=== PATIENT | female | born 1955 | race Two or more races ===

== ENCOUNTER 2017-04-25 20:55 | Emergency (ER) | payer MEDICAID ==
[~2017-04-25] VITALS: Ht 160 cm; Wt 69.9 kg
[~2017-04-25 20:55] MED LIST: AMLODIPINE BESYL5 MG ORAL; NORCO 5-325 TA1 EACH ORAL; TRAMADOL HCL50 MG ORAL; ZOFRAN ODT8 MG ORAL; ZOFRAN4 MG ORAL
[2017-04-25] MEDS ORDERED: PREDNISONE20 MG ORAL (21:25)
[2017-04-25] MEDS ORDERED: AZITHROMYCIN250 MG ORAL (21:25)
[2017-04-25] MEDS ORDERED: ALBUTEROL SULF8.5 GM INH (21:25)
--- NOTE | 2017-04-25 21:25 | Emergency Room Report ---
History of Present Illness General Chief Complaint: General Complaint Source: Patient Present Illness HPI Is a 61-year-old female with no significant past medical history. She presents with chief complaint of cough and body aches. This has been occurring since February. She was in [facility] and was coughing. She was treated with amoxicillin for 10 days. Never got better. Coughing is nonproductive in nature. No nausea no vomiting. Have headache and body pain. Worse with inspiration. No wheezing. Nonproductive in nature. Diffuse pain is 7/10. No other complaint. Allergies: Coded Allergies: No Known Allergies (Unverified , 07/17/13) Patient History Past Medical History: see triage record, old chart reviewed Past Surgical History: other Pertinent Family History: none Social History: Denies: drug use Last Menstrual Period: NONE Now: No Immunizations: other Reviewed Nursing Documentation: PMH: Agreed, PSxH: Agreed Nursing Documentation-PMH Hx Hypertension: Yes Review of Systems Constitutional: Reports: weakness Eye: Denies: blurred vision, eye pain ENT: Denies: ear pain, nose congestion, throat swelling Respiratory: Reports: cough, shortness of breath Cardiovascular: Denies: chest pain, palpitations Gastrointestinal: Denies: abdominal pain, diarrhea, nausea, vomiting Musculoskeletal: Denies: back pain, joint pain Skin: Denies: rash Neurological: Reports: headache, Denies: numbness Endocrine: Denies: increased thirst, increased urine Hematologic/Lymphatic: Denies: easy bruising All Other Systems: negative except mentioned in HPI Physical Exam Vital Signs Date Time Temp Pulse Resp B/P Pulse Ox O2 Delivery O2 Flow Rate FiO2 04/25/17 21:09 97.9 95 18 151/88 96 Room Air vitals normal except for slightly elevated blood pressure Sp02 EP Interpretation: reviewed, normal General Appearance: well appearing, no apparent distress, alert Head: normocephalic, atraumatic Eyes: bilateral eye EOMI, bilateral eye PERRL ENT: hearing grossly normal, normal pharynx Neck: full range of motion, supple, no meningismus Respiratory: chest non-tender, lungs clear, normal breath sounds, other - Lungs clear but she has coughing with inspiration. Cardiovascular #1: regular rate, rhythm, no murmur Gastrointestinal: normal bowel sounds, non tender, no mass, no organomegaly, no bruit, non-distended Musculoskeletal: back normal, gait/station normal, normal range of motion Psychiatric: mood/affect normal Skin: warm/dry Medical Decision Making Diagnostic Impression: Primary Impression: Atypical pneumonia Additional Impression: Acute bronchospasm ER Course Patient with recurrent cough and bronchospasm. Most likely a viral illness but been ongoing for almost 2 months now. This may be secondary infection with atypical pneumonia. Will go ahead and switch antibiotic last. No evidence of ACS, PE, dissection to name a few. We'll discharge home. Chest X-Ray Diagnostic Results Chest X-Ray Diagnostic Results : Chest X-Ray Ordered: Yes # of Views/Limited/Complete: 1 View Indication: Shortness of Breath EP Interpretation: Yes Interpretation: no consolidation, no effusion, no pneumothorax, no acute cardiopulmonary disease Impression: No acute disease Interpreting ER Provider: Electronically interpreted by Chris Combs MD Last Vital Signs Date Time Temp Pulse Resp B/P Pulse Ox O2 Delivery O2 Flow Rate FiO2 04/25/17 21:09 97.9 95 18 151/88 96 Room Air Status: improved Disposition: HOME, SELF-CARE Condition: Stable Scripts Azithromycin* (ZITHROMAX*) 250 Mg Tablet 250 MG ORAL DAILY, #6 TAB 0 Refills Take two tablets by mouth today, then take one tablet by mouth daily for four days Prov: CHRIS COMBS M.D. 04/25/17 Prednisone* (PREDNISONE*) 20 Mg Tablet 60 MG ORAL DAILY, #12 TAB Prov: CHRIS CMOBS M.D. 04/25/17 Albuterol Sulfate* (ALBUTEROL SULFATE MDI*) 8.5 Gm Hfa.aer.ad 2 PUFF INH Q4H Y for cough/wheezing, #1 EA 0 Refills Prov: CHRIS COMBS M.D. 04/25/17 Additional Instructions: Followup with your DrTang in 7 days. Return for increasing pain, fever, chills, or any concern. CHRIS COMBS M.D. Apr 25, 2017 21:25
[2017-04-25] MEDS ORDERED: Albuterol ud Inhalation HHN ONE (21:30)
[2017-04-25] MEDS ORDERED: PredniSONE 20mg tab ORAL ONE (21:30)
[2017-04-25 21:51] VITALS: BP 142/82
[2017-04-25 21:52] VITALS: BP 151/88
--- NOTE | 2017-04-26 11:36 | Diagnostic Imaging Report ---
Indication: Dyspnea Comparison: 12/23/15 A single view chest radiograph was obtained. Findings: Cardiomediastinal appearance is within normal limits for age. Aorta is mildly ectatic. Pulmonary vascularity is appropriate. The diaphragmatic contour is smooth and costophrenic angles are sharp. No pleural effusions are identified. The bones are unremarkable. Impression: No acute findings Atherosclerotic vascular disease
== END 2017-04-25 21:52 | disposition home or self-care (01) ==
LOC: EMR 21:08
DX: J18.9 Pneumonia, unspecified organism (principal); J98.01 Acute bronchospasm; I10 Essential (primary) hypertension
CPT/HCPCS: 71010; 94640; 94664; 99284

== ENCOUNTER 2018-08-09 17:52 | Inpatient (IN) | payer MEDICAID ==
[~2018-08-09] VITALS: Ht 160 cm; Wt 68.0 kg
[~2018-08-09 17:52] MED LIST changes: +ALBUTEROL SULF8.5 GM INH; +AZITHROMYCIN250 MG ORAL; +PREDNISONE20 MG ORAL
[2018-08-09] MEDS ORDERED: NORVASC10 MG ORAL (18:03)
[2018-08-09] MEDS ORDERED: PRILOSEC OTC20 MG ORAL (18:03)
[2018-08-09] MEDS ORDERED: HYDROCHLOROTH12.5 M2 ORAL (18:03)
[2018-08-09 18:04] VITALS: BP 156/86
[2018-08-09] MEDS ORDERED: Acetaminophen 500mg (ES) tab ORAL ONE (18:45)
[2018-08-09] MEDS ORDERED: Isovue-300 100ml vial INJ PRN (19:00)
[2018-08-09 19:08] LABS: APPEARANCE,URINE CLEAR; BILIRUBIN, URINE NEGATIVE (NEGATIVE); COLOR,URINE PALE YELLOW; GLUCOSE, URINE (UA) NEGATIVE (NEGATIVE); KETONES,URINE NEGATIVE (NEGATIVE); LEUKOCYTE ESTERASE ,URINE NEGATIVE (NEGATIVE); NITRITE,URINE NEGATIVE (NEGATIVE); PH,URINE 7 (4.5-8.0); PROTEIN,URINE NEGATIVE (NEGATIVE); UROBILINOGEN,URINE NORMAL MG/DL (0.0-1.0)
[2018-08-09 19:12] LABS: BASOPHILS % (AUTO) 1.3 % (0.0-2.0); EOSINOPHILS % (AUTO) 0.8 % (0.0-3.0); HEMATOCRIT 45.3 % (37.0-47.0); HEMOGLOBIN 15.8 G/DL (12.0-16.0); LYMPHOCYTES % (AUTO) 32.5 % (20.0-45.0); MEAN CORPUSCULAR VOLUME 92 FL (80-99); MONOCYTES % (AUTO) 7.1 % (1.0-10.0); NEUTROPHILS % (AUTO) 58.3 % (45.0-75.0); PLATELET COUNT 264 K/UL (150-450); RED BLOOD COUNT 4.94 M/UL (4.20-5.40); WHITE BLOOD COUNT 11.4 K/UL (4.8-10.8)
[2018-08-09 19:18] LABS: ANION GAP 9 mmol/L (5-15); BLOOD UREA NITROGEN 12 mg/dL (7-18); CALCIUM 9.7 MG/DL (8.5-10.1); CARBON DIOXIDE 31 MMOL/L (21-32); CHLORIDE 100 MMOL/L (98-107); CREATININE 0.7 MG/DL (0.55-1.30); POTASSIUM 3.5 MMOL/L (3.5-5.1); SODIUM 140 MMOL/L (136-145)
[2018-08-09 19:23] LABS: ALANINE AMINOTRANSFERASE 69 U/L (12-78); ALBUMIN 3.9 G/DL (3.4-5.0); ALBUMIN/GLOBULIN RATIO 0.7 (1.0-2.7); ALKALINE PHOSPHATASE 90 U/L (46-116); ASPARTATE AMINO TRANSFERASE 31 U/L (15-37); BILIRUBIN,TOTAL 0.3 MG/DL (0.2-1.0)
--- NOTE | 2018-08-09 19:38 | Emergency Room Report ---
History of Present Illness General Chief Complaint: Abdominal Pain Source: Patient (Zane Cooper) Present Illness HPI 63-year-old female patient presents ER complaining of right upper quadrant pain 1 day. Reports pain symptoms began yesterday. Reports pain is reproducible and worse with deep inspiration. reports pain radiating down to RLQ. Denies injury or trauma. Denies shortness of breath. Reports history of surgery to remove her gallbladder while ago, "does not remember when". Denies taking blood thinners. Reports history of high blood pressure and GERD. Denies vomiting. Denies diarrhea. Denies constipation. Denies fever, chest pain, shortness of breath. denies calf Pain. Denies smoking. Denies drug use. Denies on periods of immobilization. Denies history of cancer. Reports takes aspirin, denies taking other blood thinner medication. (Zane Cooper) Allergies: Coded Allergies: No Known Allergies (Unverified , 07/17/13) Patient History Past Medical History: see triage record Reviewed Nursing Documentation: PMH: Agreed; PSxH: Agreed (Zane Cooper) Nursing Documentation-PMH Past Medical History: No History, Except For Hx Hypertension: Yes (Zane Cooper) Review of Systems All Other Systems: negative except mentioned in HPI (Zane Cooper) Physical Exam Vital Signs Date Time Temp Pulse Resp B/P (MAP) Pulse Ox O2 Delivery O2 Flow Rate FiO2 08/09/18 17:56 97.9 91 18 156/86 98 Room Air 97.9 Sp02 EP Interpretation: reviewed, normal General Appearance: well appearing, no apparent distress, alert, GCS 15, non- toxic Head: normocephalic, atraumatic Eyes: bilateral eye normal inspection, bilateral eye PERRL ENT: hearing grossly normal, normal pharynx, no angioedema, normal voice, uvula midline, moist mucus membranes Neck: full range of motion Respiratory: lungs clear, normal breath sounds, no rhonchi, no respiratory distress, no accessory muscle use, no wheezing, speaking full sentences Cardiovascular #1: regular rate, rhythm, no edema Gastrointestinal: soft, no mass, non-distended, no guarding, no rebound, tenderness - RUQ Musculoskeletal: back normal, digits/nails normal, gait/station normal, normal range of motion, non-tender, no calf tenderness, Shandra's Sign negative Neurologic: alert, oriented x3, responsive, motor strength/tone normal, sensory intact Psychiatric: mood/affect normal Skin: no rash Lymphatic: no adenopathy (Zane Cooper) Medical Decision Making PA Attestation Dr. Rice is my supervising Physician whom patient management has been discussed with. (Zane Cooper) Diagnostic Impression: Primary Impression: Appendicitis ER Course Pt. presents to the ED c/o abdominal pain and vomiting. Ddx considered but are not limited to UTI, pancreatitis, appendicitis, diverticulitis, constipation, abscess, [place], PNA. Begin abdominal pain workup. Provided patient with pain medication. Vital signs: are WNL, pt. is afebrile ORDERS: CBC, CMP, Lipase, UA, CT abdomen pelvis, and pain medication. ER COURSE: PE shows patient with RLQ and RUQ pain. CBC mild elevation of WBC CMP unremarkable Lipase WNL UA negative Coags WNL Discuss results with patient CT chest abdomen and pelvis with contrast shows appendicitis, will order abx and admit patient for appendicitis. CT chest negative Discuss results with the patient. Provided patient with copy of results. Instructed patient to followup with PCP and discuss results of report with patient, discuss need for further treatment and referral. Patient reports has been NPO since 11am. Declined further pain medication at this time. I discussed patient with Dr. Rice, agrees with assessment and treatment plan. Consult with Dr. Atwood for surgical consult. Patient to be admitted to med-surg. - Please note that this Emergency Department Report was dictated using [employer] unloader technology software, occasionally this can lead to erroneous entry secondary to interpretation by the dictation equipment. Labs Test 08/09/18 18:50 White Blood Count 11.4 K/UL (4.8-10.8) Red Blood Count 4.94 M/UL (4.20-5.40) Hemoglobin 15.8 G/DL (12.0-16.0) Hematocrit 45.3 % (37.0-47.0) Mean Corpuscular Volume 92 FL (80-99) Mean Corpuscular Hemoglobin 32.0 PG (27.0-31.0) Mean Corpuscular Hemoglobin Concent 34.8 G/DL (32.0-36.0) Red Cell Distribution Width 11.0 % (11.6-14.8) Platelet Count 264 K/UL (150-450) Mean Platelet Volume 8.0 FL (6.5-10.1) Neutrophils (%) (Auto) 58.3 % (45.0-75.0) Lymphocytes (%) (Auto) 32.5 % (20.0-45.0) Monocytes (%) (Auto) 7.1 % (1.0-10.0) Eosinophils (%) (Auto) 0.8 % (0.0-3.0) Basophils (%) (Auto) 1.3 % (0.0-2.0) Prothrombin Time 11.0 SEC (9.30-11.50) Prothromb Time International Ratio 1.0 (0.9-1.1) Activated Partial Thromboplast Time 28 SEC (23-33) Urine Color Pale yellow Urine Appearance Clear Urine pH 7 (4.5-8.0) Urine Specific [place] 1.010 (1.005-1.035) Urine Protein Negative (NEGATIVE) Urine Glucose (UA) Negative (NEGATIVE) Urine Ketones Negative (NEGATIVE) Urine Blood Negative (NEGATIVE) Urine Nitrite Negative (NEGATIVE) Urine Bilirubin Negative (NEGATIVE) Urine Urobilinogen Normal MG/DL (0.0-1.0) Urine Leukocyte Esterase Negative (NEGATIVE) Sodium Level 140 MMOL/L (136-145) Potassium Level 3.5 MMOL/L (3.5-5.1) Chloride Level 100 MMOL/L (98-107) Carbon Dioxide Level 31 MMOL/L (21-32) Anion Gap 9 mmol/L (5-15) Blood Urea Nitrogen 12 mg/dL (7-18) Creatinine 0.7 MG/DL (0.55-1.30) Estimat Glomerular Filtration Rate > 60 mL/min (>60) Glucose Level 109 MG/DL (74-106) Calcium Level 9.7 MG/DL (8.5-10.1) Total Bilirubin 0.3 MG/DL (0.2-1.0) Aspartate Amino Transf (AST/SGOT) 31 U/L (15-37) Alanine Aminotransferase (ALT/SGPT) 69 U/L (12-78) Alkaline Phosphatase 90 U/L (46-116) Total Protein 9.4 G/DL (6.4-8.2) Albumin 3.9 G/DL (3.4-5.0) Globulin 5.5 g/dL Albumin/Globulin Ratio 0.7 (1.0-2.7) Lipase 118 U/L (73-393) (Zane Cooper) ER Course The patient was discussed me by physician digital sales assistant. Patient was noted to have the right lower quadrant abdominal pain. CT the abdomen pelvis showed evidence of acute appendicitis. The patient was discussed with Dr. Atwood for surgical consult. Dr.De Sandoval was contacted for inpatient management. Labs Test 08/09/18 18:50 White Blood Count 11.4 K/UL (4.8-10.8) Red Blood Count 4.94 M/UL (4.20-5.40) Hemoglobin 15.8 G/DL (12.0-16.0) Hematocrit 45.3 % (37.0-47.0) Mean Corpuscular Volume 92 FL (80-99) Mean Corpuscular Hemoglobin 32.0 PG (27.0-31.0) Mean Corpuscular Hemoglobin Concent 34.8 G/DL (32.0-36.0) Red Cell Distribution Width 11.0 % (11.6-14.8) Platelet Count 264 K/UL (150-450) Mean Platelet Volume 8.0 FL (6.5-10.1) Neutrophils (%) (Auto) 58.3 % (45.0-75.0) Lymphocytes (%) (Auto) 32.5 % (20.0-45.0) Monocytes (%) (Auto) 7.1 % (1.0-10.0) Eosinophils (%) (Auto) 0.8 % (0.0-3.0) Basophils (%) (Auto) 1.3 % (0.0-2.0) Prothrombin Time 11.0 SEC (9.30-11.50) Prothromb Time International Ratio 1.0 (0.9-1.1) Activated Partial Thromboplast Time 28 SEC (23-33) Urine Color Pale yellow Urine Appearance Clear Urine pH 7 (4.5-8.0) Urine Specific [place] 1.010 (1.005-1.035) Urine Protein Negative (NEGATIVE) Urine Glucose (UA) Negative (NEGATIVE) Urine Ketones Negative (NEGATIVE) Urine Blood Negative (NEGATIVE) Urine Nitrite Negative (NEGATIVE) Urine Bilirubin Negative (NEGATIVE) Urine Urobilinogen Normal MG/DL (0.0-1.0) Urine Leukocyte Esterase Negative (NEGATIVE) Sodium Level 140 MMOL/L (136-145) Potassium Level 3.5 MMOL/L (3.5-5.1) Chloride Level 100 MMOL/L (98-107) Carbon Dioxide Level 31 MMOL/L (21-32) Anion Gap 9 mmol/L (5-15) Blood Urea Nitrogen 12 mg/dL (7-18) Creatinine 0.7 MG/DL (0.55-1.30) Estimat Glomerular Filtration Rate > 60 mL/min (>60) Glucose Level 109 MG/DL (74-106) Calcium Level 9.7 MG/DL (8.5-10.1) Total Bilirubin 0.3 MG/DL (0.2-1.0) Aspartate Amino Transf (AST/SGOT) 31 U/L (15-37) Alanine Aminotransferase (ALT/SGPT) 69 U/L (12-78) Alkaline Phosphatase 90 U/L (46-116) Total Protein 9.4 G/DL (6.4-8.2) Albumin 3.9 G/DL (3.4-5.0) Globulin 5.5 g/dL Albumin/Globulin Ratio 0.7 (1.0-2.7) Lipase 118 U/L (73-393) (Messi Rice MD) CT/MRI/US Diagnostic Results CT/MRI/US Diagnostic Results #1: Imaging Test Ordered: CT abdomen pelvis Impression acute appendicitis CT/MRI/US Diagnostic Results #2: Imaging Test Ordered: CT chest Impression negative (Zane Cooper) Last Vital Signs Date Time Temp Pulse Resp B/P (MAP) Pulse Ox O2 Delivery O2 Flow Rate FiO2 08/09/18 18:52 97.9 08/09/18 18:04 91 18 156/86 98 Room Air (Zane Cooper) Status: unchanged (Messi Rice MD) Disposition: ADMITTED INPATIENT Condition: Serious Zane Cooper Aug 09, 2018 19:38 Messi Rice MD Aug 09, 2018 23:49
--- NOTE | 2018-08-09 20:35 | Diagnostic Imaging Report ---
EXAM: CT Chest With Intravenous Contrast CLINICAL HISTORY: PAIN TECHNIQUE: Axial computed tomography images of the chest with intravenous contrast. CTDI is 0.15, 17.31, 14.66 mGy and DLP is 14.38 mGy-cm. One or more of the following dose reduction techniques were used: automated exposure control, adjustment of the mA and/or kV according to patient size, use of iterative reconstruction technique. COMPARISON: No relevant prior studies available. FINDINGS: Lungs: Unremarkable. No mass. No consolidation. Pleural space: Unremarkable. No pneumothorax. No significant effusion. Heart: Unremarkable. No cardiomegaly. No significant pericardial effusion. Bones/joints: Probable osseous hemangioma in the T9 vertebral body. Mild degenerative changes of the spine. No acute osseous abnormality. No dislocation. Soft tissues: Unremarkable. Vasculature: Atherosclerosis of the thoracic aorta. No thoracic aortic aneurysm or dissection. Lymph nodes: Unremarkable. IMPRESSION: No acute findings. EXAM: CT Abdomen and Pelvis With Intravenous Contrast CLINICAL HISTORY: PAIN TECHNIQUE: Axial computed tomography images of the abdomen and pelvis with intravenous contrast. CTDI is 0.15, 17.31, 14.66 mGy and DLP is 14.38 mGy-cm. One or more of the following dose reduction techniques were used: automated exposure control, adjustment of the mA and/or kV according to patient size, use of iterative reconstruction technique. COMPARISON: No relevant prior studies available. FINDINGS: Lung bases: Unremarkable. No mass. No consolidation. ABDOMEN: Liver: Liver is enlarged. Subcentimeter focus of hypoattenuation in the inferior right hepatic lobe is too small to characterize. Gallbladder and bile ducts: Gallbladder surgically absent. Pancreas: Unremarkable. Spleen: Unremarkable. Adrenals: Unremarkable. Kidneys and ureters: Unremarkable. No solid mass. No hydronephrosis. Stomach and bowel: Colonic diverticulosis without focal inflammatory change. Bowel is nondilated. PELVIS: Appendix: Thickened appendix measuring 1 cm with surrounding inflammatory change. Bladder: Unremarkable. Reproductive: Unremarkable as visualized. ABDOMEN and PELVIS: Intraperitoneal space: No free air. No loculated fluid collection. Bones/joints: No acute osseous abnormality. Soft tissues: Unremarkable. Vasculature: Unremarkable. No abdominal aortic aneurysm. Lymph nodes: Unremarkable. IMPRESSION: Acute uncomplicated appendicitis. [employer] 08/09/18 20:38 Call Doctor Regarding Appendicitis, called Allison FLEMING on 08/09 20:38 (-07:00)
[2018-08-09] MEDS ORDERED: Ampicillin/Sulbactam Sod 3 GM in NS 110 ML IVPB ONE (20:45)
--- NOTE | 2018-08-09 21:22 | Consultation ---
History of Present Illness General Date patient seen: Aug 09, 2018 Chief Complaint: Abdominal Pain Present Illness HPI 63 year old female with pmhx of HTN presented to ED with complaints of Right sided abdominal pain for 1 day. States pain began last night and has persisted since. Pain 8/10 cramping right abdominal pain in right lower and right middle quadrant. no n/v/f/c. no radiation. in ED noted to have leukocytosis and CT consistent with acute appy. surgery called to evaluate. patient seen, chart reviewed, patient examined. PSHx: lap ruben and prior c section Allergies: Coded Allergies: No Known Allergies (Unverified , 07/17/13) Medication History Scheduled Amlodipine Besylate (Norvasc), 10 MG ORAL DAILY, (Reported) Amlodipine Besylate* (Amlodipine Besylate*), 5 MG ORAL DAILY, (Reported) Azithromycin* (Zithromax*), 250 MG ORAL DAILY Hydrochlorothiazide* (Hydrochlorothiazide*), 12.5 MG ORAL DAILY, (Reported) Omeprazole Magnesium (Prilosec Otc), 20 MG ORAL DAILY, (Reported) Ondansetron (Zofran), 4 MG ORAL Q8H Ondansetron Odt* (Zofran Odt*), 8 MG ORAL Q6H Prednisone* (Prednisone*), 60 MG ORAL DAILY Scheduled PRN Albuterol Sulfate* (Albuterol Sulfate Mdi*), 2 PUFF INH Q4H PRN for cough/ wheezing Hydrocodone Bit/Acetaminophen 5-325* ([place] 5-325*), 1 TAB ORAL Q6H PRN for For Pain Tramadol Hcl* (Ultram*), 50 MG ORAL Q6H PRN for For Pain Patient History History Provided By: Patient, Medical Record, PMD Healthcare decision maker Resuscitation status Advanced Directive on File Past Medical/Surgical History Past Medical/Surgical History: (1) Sciatica (2) back pain (3) Appendicitis Review of Systems Constitutional: Denies: no symptoms, see HPI, chills, sweats, fever, malaise, weakness, other Eye: Denies: no symptoms, see HPI, eye pain, blurred vision, tearing, double vision, nose pain, nose congestion, acuity changes, discharge, other ENT: Denies: no symptoms, see HPI, ear pain, ear discharge, nose pain, nose congestion, throat pain, throat swelling, mouth pain, hearing loss, nasal discharge, other Respiratory: Denies: no symptoms, see HPI, cough, orthopnea, shortness of breath, stridor, wheezing, LUU, sputum, other Cardiovascular: Denies: no symptoms, see HPI, chest pain, edema, palpitations, syncope, PND, other Gastrointestinal: Reports: abdominal pain Genitourinary: Denies: no symptoms, see HPI, discharge, dysuria, frequency, hematuria, pain, retention, incontinence, urgency, vag bleed/dc, other Musculoskeletal: Denies: no symptoms, see HPI, back pain, gout, joint pain, joint swelling, muscle pain, muscle stiffness, other Skin: Denies: no symptoms, see HPI, rash, change in color, change in hair/nails , dryness, lesions, other Psychiatric: Denies: no symptoms, see HPI, prior hx, anxiety, depressed feelings, emotional problems, SI, HI, hallucinations, other Neurological: Denies: no symptoms, see HPI, headache, numbness, paresthesia, seizure, tingling, tremors, focal weakness, syncope, dizziness, other Endocrine: Denies: no symptoms, see HPI, excessive sweating, flushing, intolerance to temperature, increased thirst, increased urine, unexplained weight loss, other Hematologic/Lymphatic: Denies: no symptoms, see HPI, anemia, blood clots, easy bleeding, easy bruising, swollen glands, diathesis, other All Other Systems: negative except mentioned in HPI Physical Exam General Appearance: no apparent distress, alert Lines, tubes and drains: peripheral HEENT: atraumatic, mucous membranes moist Neck: normal inspection Respiratory/Chest: normal breath sounds, no respiratory distress, no accessory muscle use Cardiovascular/Chest: normal rate, regular rhythm Abdomen: normal bowel sounds, soft, no organomegaly, no mass, guarding, rebound , tender Extremities: normal inspection, no calf tenderness Skin Exam: warm/dry Neurologic: alert, oriented x 3 Last 24 Hour Vital Signs Date Time Temp Pulse Resp B/P (MAP) Pulse Ox O2 Delivery O2 Flow Rate FiO2 08/09/18 18:52 97.9 08/09/18 18:04 97.9 91 18 156/86 98 Room Air 97.9 08/09/18 17:56 97.9 91 18 156/86 98 Room Air 97.9 Laboratory Tests Test 08/09/18 18:50 White Blood Count 11.4 K/UL (4.8-10.8) H Red Blood Count 4.94 M/UL (4.20-5.40) Hemoglobin 15.8 G/DL (12.0-16.0) Hematocrit 45.3 % (37.0-47.0) Mean Corpuscular Volume 92 FL (80-99) Mean Corpuscular Hemoglobin 32.0 PG (27.0-31.0) H Mean Corpuscular Hemoglobin Concent 34.8 G/DL (32.0-36.0) Red Cell Distribution Width 11.0 % (11.6-14.8) L Platelet Count 264 K/UL (150-450) Mean Platelet Volume 8.0 FL (6.5-10.1) Neutrophils (%) (Auto) 58.3 % (45.0-75.0) Lymphocytes (%) (Auto) 32.5 % (20.0-45.0) Monocytes (%) (Auto) 7.1 % (1.0-10.0) Eosinophils (%) (Auto) 0.8 % (0.0-3.0) Basophils (%) (Auto) 1.3 % (0.0-2.0) Prothrombin Time 11.0 SEC (9.30-11.50) Prothromb Time International Ratio 1.0 (0.9-1.1) Activated Partial Thromboplast Time 28 SEC (23-33) Urine Color Pale yellow Urine Appearance Clear Urine pH 7 (4.5-8.0) Urine Specific [place] 1.010 (1.005-1.035) Urine Protein Negative (NEGATIVE) Urine Glucose (UA) Negative (NEGATIVE) Urine Ketones Negative (NEGATIVE) Urine Blood Negative (NEGATIVE) Urine Nitrite Negative (NEGATIVE) Urine Bilirubin Negative (NEGATIVE) Urine Urobilinogen Normal MG/DL (0.0-1.0) Urine Leukocyte Esterase Negative (NEGATIVE) Sodium Level 140 MMOL/L (136-145) Potassium Level 3.5 MMOL/L (3.5-5.1) Chloride Level 100 MMOL/L (98-107) Carbon Dioxide Level 31 MMOL/L (21-32) Anion Gap 9 mmol/L (5-15) Blood Urea Nitrogen 12 mg/dL (7-18) Creatinine 0.7 MG/DL (0.55-1.30) Estimat Glomerular Filtration Rate > 60 mL/min (>60) Glucose Level 109 MG/DL (74-106) H Calcium Level 9.7 MG/DL (8.5-10.1) Total Bilirubin 0.3 MG/DL (0.2-1.0) Aspartate Amino Transf (AST/SGOT) 31 U/L (15-37) Alanine Aminotransferase (ALT/SGPT) 69 U/L (12-78) Alkaline Phosphatase 90 U/L (46-116) Total Protein 9.4 G/DL (6.4-8.2) H Albumin 3.9 G/DL (3.4-5.0) Globulin 5.5 g/dL Albumin/Globulin Ratio 0.7 (1.0-2.7) L Lipase 118 U/L (73-393) Height (Feet): 5 Height (Inches): 3.00 Weight (Pounds): 150 Medications Current Medications Medications (Trade) Dose Ordered Sig/Raúl Route PRN Reason Start Time Stop Time Status Last Admin Dose Admin Iopamidol (Isovue-300 100ml) 100 ml NOW PRN INJ Radiology Procedure 08/09/18 19:00 Assessment/Plan Problem List: (1) Appendicitis Assessment & Plan: 63F with acute appendicitis. afebrile,HD stable, leukocytosis, exam with Right sided tenderness/rebound/guarding, CT consistent with acute appy NPO IV fluids IV abx Consent To OR for lap vs open appy thank you ICD Codes: K37 - Unspecified appendicitis SNOMED: [id number] Qualifiers: Status: stable Adelfo Atwood Aug 09, 2018 21:22
--- NOTE | 2018-08-09 21:23 | Pre-Procedure Note/Attestation ---
Pre-Procedure Note/Attestation Complete Prior to Procedure Planned Procedure: not applicable Procedure Narrative: laparoscopic possible open appendectomy Indications for Procedure Pre-Operative Diagnosis: acute appendicitis Attestation I attest that I discussed the nature of the procedure; its benefits; risks and complications; and alternatives (and the risks and benefits of such alternatives ), prior to the procedure, with the patient (or the patient's legal pharmaceutical specialty representative). I attest that, if there was a reasonable possibility of needing a blood transfusion, the patient (or the patient's legal pharmaceutical specialty representative) was given the [facility] standardized written summary, pursuant to the [place] Blood Safety Act ([place] Health and Safety Code # 1645, as amended). I attest that I re-evaluated the patient just prior to the surgery and that there has been no change in the patient's H&P, except as documented below: Adelfo Atwood Aug 09, 2018 21:23
[2018-08-09] MEDS ORDERED: Bupivacaine w/Epi 0.25% 30ml Vial INJ ONE (22:12)
[2018-08-09] MEDS ORDERED: Bacitracin 50000 Units Vial ONE (22:12)
[2018-08-09] MEDS ORDERED: NeoSporin Gu Irrig 1ml Amp IRRIG ONE (22:12)
[2018-08-09] MEDS ORDERED: fentaNYL 100 mcg/2 mL IV ONE (22:18)
[2018-08-09] MEDS ORDERED: Zemuron 50mg/5ml Inj IV ONE (22:22)
--- NOTE | 2018-08-09 22:27 | Anethesia Preoperative Eval ---
Anesthesia Pre-op PMH/ROS General Date of Evaluation: Aug 09, 2018 Time of Evaluation: 22:30 Anesthesiologist: srikanth ASA Score: ASA 2 Mallampati Score Class I : Soft palate, uvula, fauces, pillars visible Class II: Soft palate, uvula, fauces visible Class III: Soft palate, base of uvula visible Class IV: Only hard plate visible Mallampati Classification: Class II Surgeon: ramana Diagnosis: appendicitis Surgical Procedure: Lap Appendectomy Anesthesia History: none Family History: no anesthesia problems Allergies: Coded Allergies: No Known Allergies (Unverified , 07/17/13) Medications: see eMAR Patient NPO?: Yes Past Medical History Cardiovascular: Reports: HTN; Denies: CAD, [place], valve dz, arrhythmia, other Pulmonary: Reports: asthma; Denies: COPD, CECELIA, other Gastrointestinal/Genitourinary: Denies: GERD, CRI, ESRD, other Neurologic/Psychiatric: Denies: dementia, CVA, depression/anxiety, TIA, other Endocrine: Denies: DM, hypothyroidism, steroids, other HEENT: Denies: cataract (L), cataract (R), glaucoma, [place] (L), [place] (R), other Hematology/Immune: Denies: anemia, DVT, bleeding disorder, other PMH Narrative: sciatica; chronic pain PSxH Narrative: unknown Anesthesia Pre-op Phys. Exam Physician Exam Last Vital Signs Date Time Temp Pulse Resp B/P (MAP) Pulse Ox O2 Delivery O2 Flow Rate FiO2 08/09/18 18:52 97.9 08/09/18 18:04 91 18 156/86 98 Room Air Constitutional: NAD Neurologic: CN 2-12 intact Cardiovascular: RRR Respiratory: CTA Gastrointestinal: S/NT/ND Airway Exam Mallampati Classification 2 Mallampati Score: Class III MO: full ROM: full Dentures: upper, lower Anesthesia Pre-op A/P Labs Hematology Test 08/09/18 18:50 White Blood Count 11.4 K/UL (4.8-10.8) H Red Blood Count 4.94 M/UL (4.20-5.40) Hemoglobin 15.8 G/DL (12.0-16.0) Hematocrit 45.3 % (37.0-47.0) Mean Corpuscular Volume 92 FL (80-99) Mean Corpuscular Hemoglobin 32.0 PG (27.0-31.0) H Mean Corpuscular Hemoglobin Concent 34.8 G/DL (32.0-36.0) Red Cell Distribution Width 11.0 % (11.6-14.8) L Platelet Count 264 K/UL (150-450) Mean Platelet Volume 8.0 FL (6.5-10.1) Neutrophils (%) (Auto) 58.3 % (45.0-75.0) Lymphocytes (%) (Auto) 32.5 % (20.0-45.0) Monocytes (%) (Auto) 7.1 % (1.0-10.0) Eosinophils (%) (Auto) 0.8 % (0.0-3.0) Basophils (%) (Auto) 1.3 % (0.0-2.0) Coagulation Test 08/09/18 18:50 Prothrombin Time 11.0 SEC (9.30-11.50) Prothromb Time International Ratio 1.0 (0.9-1.1) Activated Partial Thromboplast Time 28 SEC (23-33) Chemistry Test 08/09/18 18:50 Sodium Level 140 MMOL/L (136-145) Potassium Level 3.5 MMOL/L (3.5-5.1) Chloride Level 100 MMOL/L (98-107) Carbon Dioxide Level 31 MMOL/L (21-32) Anion Gap 9 mmol/L (5-15) Blood Urea Nitrogen 12 mg/dL (7-18) Creatinine 0.7 MG/DL (0.55-1.30) Estimat Glomerular Filtration Rate > 60 mL/min (>60) Glucose Level 109 MG/DL (74-106) H Calcium Level 9.7 MG/DL (8.5-10.1) Total Bilirubin 0.3 MG/DL (0.2-1.0) Aspartate Amino Transf (AST/SGOT) 31 U/L (15-37) Alanine Aminotransferase (ALT/SGPT) 69 U/L (12-78) Alkaline Phosphatase 90 U/L (46-116) Total Protein 9.4 G/DL (6.4-8.2) H Albumin 3.9 G/DL (3.4-5.0) Globulin 5.5 g/dL Albumin/Globulin Ratio 0.7 (1.0-2.7) L Lipase 118 U/L (73-393) Studies Pre-op Studies: EKG - SR Risk Assessment & Plan Plan: general Status Change Before Surgery: No Pre-Antibiotics Drug: declined Kathe Etienne CRNA Aug 09, 2018 22:26
[2018-08-09] MEDS ORDERED: Glycopyrrolate 0.2mg/ml 1ml Vial ONE ×2 (22:30→23:36)
[2018-08-09] MEDS ORDERED: fentaNYL 100 mcg/2 mL IV PRN (22:30)
[2018-08-09] MEDS ORDERED: LR 1000ml ONE (22:30)
[2018-08-09] MEDS ORDERED: Propofol 200mg/20ml IV ONE (22:52)
[2018-08-09] MEDS ORDERED: Metoclopramide 10mg/2ml Inj ONE (22:52)
[2018-08-09] MEDS ORDERED: Lidocaine 1% MPF 10mg/ml 5ml ONE (22:52)
[2018-08-09] MEDS ORDERED: Ketorolac 30mg Inj ONE (23:01)
[2018-08-09] MEDS ORDERED: Neostigmine 1mg/ml 10ml Inj ONE (23:36)
[2018-08-09 23:45] VITALS: BP 135/77
[2018-08-09] MEDS ORDERED: Albuterol 90mcg Inhaler 8gm INH ONE (23:45)
[2018-08-09 23:50] VITALS: BP 134/79
[2018-08-09 23:55] VITALS: BP 126/77
--- NOTE | 2018-08-09 23:58 | Immediate Post-Op Evaluation ---
Immediate Post-Op Evalulation Immediate Post-Op Evalulation Procedure: lap appendectomy Date of Evaluation: Aug 09, 2018 Time of Evaluation: 23:50 IV Fluids: 500 Blood Pressure Systolic: 134 Blood Pressure Diastolic: 77 Pulse Rate: 68 Respiratory Rate: 14 O2 Sat by Pulse Oximetry: 99 Temperature (Fahrenheit): 97.5 Nausea: No Vomiting: No Complications none Patient Status: awake, reacts, patent Hydration Status: adequate Drug: declined Kathe Etienne CRNA Aug 09, 2018 23:58
[2018-08-10] VITALS (10 sets, daily range): BP systolic 106–126; BP diastolic 64–73
[2018-08-10] MEDS ORDERED: Enoxaparin 40mg Inj SUBQ SCH
--- NOTE | 2018-08-10 00:12 | Brief Operative Note ---
Immediate Post Operative Note Operative Note Pre-op Diagnosis: acute appendicitis Procedure: lap appy Post-op Diagnosis: same as pre-op Surgeon: moni Anesthesiologist: Kathe Mendosa Anesthesia: general Specimen: yes Complications: none Condition: stable Fluids: see records Estimated Blood Loss: minimal Drains: none Implant(s) used?: No Adelfo Atwood Aug 10, 2018 00:12
[2018-08-10] MEDS ORDERED: Morphine Sulfate 2mg/ml Inj IVP PRN ×2 (00:15)
[2018-08-10] MEDS ORDERED: HYDROcodone/Acetamin 10/325 tab ORAL PRN (00:15)
[2018-08-10] MEDS ORDERED: Norco 5mg/325mg tab ORAL PRN (00:15)
[2018-08-10] MEDS ORDERED: Morphine Sulfate 4mg/ml Inj (IV/IM USE ONLY) IVP PRN (00:15)
[2018-08-10] MEDS ORDERED: Milk of Magnesia 30ml Ud ORAL PRN (00:15)
[2018-08-10] MEDS ORDERED: Sennosides 8.6mg ORAL PRN (00:15)
--- NOTE | 2018-08-10 03:15 | Operative Note - Dictated ---
DATE OF OPERATION: 08/09/2018 PREOPERATIVE DIAGNOSIS: Acute appendicitis. POSTOPERATIVE DIAGNOSIS: Acute uncomplicated appendicitis. OPERATION PERFORMED: Laparoscopic appendectomy. ATTENDING SURGEON: Adelfo Atwood M.D. JEWELLERY DESIGNER: None. ANESTHESIOLOGISTS: Kathe Etienne CRNA ANESTHESIA: General MED DIR. ESTIMATED BLOOD LOSS: Minimal. IV FLUIDS: Please see anesthesia records. COMPLICATIONS: None. WOUND CLASSIFICATION: Class III. SPECIMENS: Appendix sent to Pathology for review. ANTIBIOTICS: The patient given IV antibiotics one hour prior to cut time. COUNTS: Sponge and needle count correct x2. DRAINS: None. INDICATIONS FOR PROCEDURE: This 60-year-old female presented to the emergency department [facility] complaining of worsening right-sided abdominal pain for one day. The patient was without leukocytosis and CT scan consistent with acute appendicitis. Surgery was indicated and recommended. Risks, benefits, and alternatives were discussed with the patient in detail, who expressed understanding and consented for surgery. OPERATIVE NOTE: The patient was taken to the operating room and placed on operative table in supine position with bilateral arms out. All bony prominences were well padded. SCDs were placed. Preoperative time-out was taken identifying the patient, procedure, operative staff, and surgical staff. The patient was already given IV antibiotics in the emergency department one hour prior to cut time. No Beebe catheter was inserted given the patient voided prior to entering the operating room. General anesthesia was induced. The patient was intubated. The abdomen was clipped, prepped, and draped in standard surgical fashion. An infraumbilical incision was made utilizing the patient's prior umbilical incision scar. Incision was carried down to the fascia was elevated and incised. Entry into the abdomen was obtained using the open Wendy technique without complication. A 12 mm Wendy trocar was inserted. The abdomen was insufflated to 12 to 15 mmHg. The patient tolerated the insufflation well. Laparoscope was inserted. The abdomen was inspected. Secondary trocars were placed under direct visualization beginning with a 5 mm suprapubic and a 5 mm left lateral quadrant port site. Once this was completed, the patient was placed in reverse Trendelenburg with left side down. Laparoscopic graspers were used to identify the cecum, terminal ileum and a densely adhesed retrocecal appendix. The retrocecal appendix was slowly dissected away from its peritoneal attachments until the tip was identified. The tip was then carried down towards the mesoappendix where at the base of the appendix a window was made. The mesoappendix was divided using a laparoscopic linear stapler. Following this, the remainder of the appendix was slowly dissected down to the base at which point the base of the appendix and cecum was identified. A laparoscopic linear stapler was then used to divide the base of the appendix without complication. The appendix was placed in the endoscopic retrieval bag and removed from the abdomen using the umbilical port site. All four quadrants were inspected. The staple lines were inspected and no abnormalities were noted. Good hemostasis was identified and good viable base of the staple line at the base of the appendix/cecum. At this time, we began the conclusion of our procedure. Secondary trocars removed under direct visualization followed by removal of the umbilical trocar site. The abdomen was desufflated. The umbilical trocar site fascia was closed using #0 Vicryl [id number] suture. Following this, all wounds were cleansed and the skin incisions were closed using 4-0 Monocryl subcuticular interrupted sutures. Benzoin and Steri-Strips were applied followed by dressings. Local anesthetic was utilized throughout the procedure for the patient's comfort. The patient tolerated the procedure well, was extubated, and taken to postanesthetic care unit in stable condition. Adelfo Atwood M.D. DR: RAMONITA JOB#: [id number] CC:
[2018-08-10 05:03] LABS: EOSINOPHILS % (AUTO) 0.1 % (0.0-3.0); HEMATOCRIT 41.1 % (37.0-47.0); HEMOGLOBIN 14.2 G/DL (12.0-16.0); LYMPHOCYTES % (AUTO) 17.6 % (20.0-45.0); MEAN CORPUSCULAR VOLUME 90 FL (80-99); NEUTROPHILS % (AUTO) 76.4 % (45.0-75.0); PLATELET COUNT 220 K/UL (150-450); RED BLOOD COUNT 4.54 M/UL (4.20-5.40); RED CELL DISTRIBUTION WIDTH 11.3 % (11.6-14.8); WHITE BLOOD COUNT 10.2 K/UL (4.8-10.8)
[2018-08-10] MEDS: Piperacillin/Tazobactam 3.375 GM in NS 110 ML IVPB SCH ×2 (05:05→14:00)
[2018-08-10 05:15] LABS: ANION GAP 7 mmol/L (5-15); BLOOD UREA NITROGEN 9 mg/dL (7-18); CALCIUM 8.7 MG/DL (8.5-10.1); CARBON DIOXIDE 29 MMOL/L (21-32); CHLORIDE 105 MMOL/L (98-107); CREATININE 0.6 MG/DL (0.55-1.30); POTASSIUM 3.7 MMOL/L (3.5-5.1); SODIUM 141 MMOL/L (136-145)
[2018-08-10] MEDS ORDERED: Docusate 100mg cap ORAL SCH (09:00)
--- NOTE | 2018-08-10 11:15 | History and Physical Report ---
DATE OF ADMISSION: 08/09/2018 REASON FOR ADMISSION: 1. Abdominal pain. 2. Appendicitis. HISTORY OF PRESENT ILLNESS: The patient is a 63-year-old female, who presented to the emergency room overnight complaining of right upper quadrant pain for over one day. The patient states that it began approximately one day ago. CT abdomen and pelvis was consistent with possible appendicitis. As such, General Surgery was consulted. The patient was initially on IV antibiotics. The patient did have an appendectomy overnight. This morning, the patient is resting comfortably. No acute distress. ALLERGIES: No known drug allergies. PAST MEDICAL HISTORY: 1. Hypertension. 2. GERD. 3. COPD. FAMILY HISTORY: Positive for hypertension. PAST SURGICAL HISTORY: Noncontributory. LABORATORY DATA: Dated August 10, 2018, sodium 141, potassium 3.7, bicarb 29, BUN 9, creatinine 0.6, calcium 8.7. White cell count 10.2, hemoglobin 14.2, and platelet count 220. REVIEW OF SYSTEMS: NEUROLOGIC: The patient denies headache, change in vision, syncope or presyncopal episodes. CARDIOVASCULAR: No current chest pain, palpitations or angina. PULMONARY: No difficulty breathing, productive cough or sputum. GASTROINTESTINAL/GENITOURINARY: The patient was having abdominal pain, but no nausea, vomiting or diarrhea. ENDOCRINOLOGY: No night sweats, fevers, or chills. MUSCULOSKELETAL: The patient is feeling weak, tired, and fatigued. PHYSICAL EXAMINATION: VITAL SIGNS: Blood pressure 113/70, pulse 78, and 97% oxygen saturation on room air, and temperature 97.4. GENERAL: The patient awake, alert, not otherwise in distress. HEENT: Extraocular muscles intact. No lymphadenopathy noted. CARDIOVASCULAR: S1, S2. No rubs or gallops. PULMONARY: Clear to auscultation bilaterally. No rales, rhonchi or wheezes. ABDOMEN: Nondistended and nontender. Incision wounds noted. EXTREMITIES: No edema noted. ASSESSMENT AND PLAN: 1. Abdominal pain secondary to acute appendicitis. Status post appendectomy. The patient currently on Zosyn 3.375 g every eight hours. Once cleared by General Surgery, we will discharge the patient. 2. Hypertension. Continue home medications. 3. DVT prophylaxis with SCDs. 4. Abdominal pain, resolved, status post appendectomy. Philipp Kauffman MD DR: DEMETRI JOB#: [id number] CC:
--- NOTE | 2018-08-10 12:17 | General Progress Note ---
Progress Note Progress Note Surgery: no acute events. pain incisional. tolerating diet. ambulatory. using bathroom no n/v/f/c labs improved s/p lap appy -d/c home -rx written -f/u given thank you Adelfo Atwood Aug 10, 2018 12:17
[2018-08-10] MEDS ORDERED: NORCO 5-325 TA1 EACH ORAL (13:51)
[2018-08-10] MEDS ORDERED: COLACE100 MG ORAL ×2 (13:52→13:53)
--- NOTE | 2018-08-10 14:23 | 48 Hour Post Anesthesia Eval ---
Post Anesthesia Evaluation Procedure: lap appendectomy Date of Evaluation: Aug 10, 2018 Time of Evaluation: 14:22 Blood Pressure Systolic: 125 0: 73 Pulse Rate: 57 Respiratory Rate: 14 O2 Sat by Pulse Oximetry: 97 Airway: patent Nausea: No Vomiting: No Hydration Status: adequate Cardiopulmonary Status: stable Mental Status/LOC: patient returned to baseline Post-Anesthesia Complications: none Follow-up care needed: N/A Kathe Etienne CRNA Aug 10, 2018 14:23
--- NOTE | 2018-08-11 07:24 | Discharge Summary ---
Discharge Summary Discharge Summary _ DATE OF ADMISSION: 08/09/2018 DATE OF DISCHARGE: 22,018 08/10/2018 REASON FOR ADMISSION: 63 years old female with past medical history of hypertension, COPD and GERD, presented to emergency department complaining of right upper quadrant pain for one day. Pain was reproducible, worse with deep inspiration ,with radiation to right lower quadrant. She denied injury or trauma. She denied chest pain or shortness of breath. She reported history of gallstones years ago. Not on any anticoagulation Upon evaluation vital signs were stable. Laboratory workup revealed mild leukocytosis. Urinalysis with no evidence of UTI. Stable electrolytes , renal parameters , LFT and lipase. CT o abdomen and pelvis revealed acute uncomplicated appendicitis. CT of the chest revealed no acute findings. Patient admitted for further management CONSULTANTS: surgery Dr. Atwood [facility] COURSE: Patient admitted and started on the IV fluids. Patient kept nothing by mouth . Pain management provided. Surgeon seen and evaluated patient. Patient subsequently undergone laparoscopic appendectomy on 08/09. Course of recovery was uneventful. Pain management was addressed and controlled ( incisional pain). No nausea, no vomiting . Patient slowly started on diet and advanced as tolerated. Patient was able to tolerate diet. No fever, no chills. Mild leukocytosis resolved. Voided freely . Ambulated. Home medications resumed, including antihypertensive and inhaler. Pulse oximetry stable on room air. DVT and GI prophylaxis provided. Prescription provided . Discharge instructions discussed with patient. Patient was stable for discharge home. Outpatient follow-up as advised by surgeon. Due to rapid and expected improvement in patient 's condition , the patient was discharged in one day. FINAL DIAGNOSES: Acute uncomplicated appendicitis Status post laparoscopic appendectomy Hypertension DISCHARGE MEDICATIONS: See Medication Reconciliation list. DISCHARGE INSTRUCTIONS: Patient was discharged home Follow up with surgeon as advised, I have been assigned to dictate discharge summary for this account. I was not involved in the patient's management. Kiki Adams NP Aug 11, 2018 07:24
== END 2018-08-10 14:30 | disposition home or self-care (01) | DRG 234 ==
LOC: EMR 20:12 → 3E 21:09 → EDBEDREQ 22:31
PROC: 0DTJ4ZZ Resection of Appendix, Percutaneous Endoscopic Approach (ICD-10-PCS; principal; 2018-08-09 22:30)
DX: K35.80 Unspecified acute appendicitis (principal); I10 Essential (primary) hypertension; J44.9 Chronic obstructive pulmonary disease, unspecified; K21.9 Gastro-esophageal reflux disease without esophagitis
CPT/HCPCS: 36415; 71260; 74177; 80048; 80053; 81003; 83690; 85025; 85610; 85730; 93005; 96365; 99285; J2405; J2710; J2765

== ENCOUNTER 2019-10-03 13:11 | Emergency (ER) | payer MEDICAID ==
[~2019-10-03] VITALS: Ht 160 cm; Wt 72.6 kg
[~2019-10-03 13:11] MED LIST changes: +COLACE100 MG ORAL; +HYDROCHLOROTH12.5 M2 ORAL; +NORVASC10 MG ORAL; +PRILOSEC OTC20 MG ORAL
[2019-10-03] MEDS ORDERED: Omnipaque-300 100ml vial INJ PRN (13:45)
--- NOTE | 2019-10-03 13:45 | NUR ---
ED Nurse Note: received pt from triage, pt c/o headache, generalized body cramps, nausea with decrease appetite, chills since sunday with fever, pt denies vomiting, coughing, nor problem with urination. pt states she hasn't been eating as well since sunday. pt noted temp 99.9F, LY=143, resp even and unlabored on RA, LS=clear, ambulatory w/ steady gait, will cont monitor.
--- NOTE | 2019-10-03 13:48 | NUR ---
ED Nurse Note: spoke with ERMD per pt's condition, CT abd cancelled per ERMD and verbal order for influenza swab received.
[2019-10-03 13:49] VITALS: BP 157/98
--- NOTE | 2019-10-03 13:51 | NUR ---
HAND-OFF: Report given to AIDEE BURGESS and endorsed care. pt resting at this time. iv intact and patent, fluids running per ERMD order. lab specimen collected and sent.
--- NOTE | 2019-10-03 13:52 | NUR ---
ED Nurse Note: Pt resting in bed. Reports pain 05/31. Awaiting orders from ERMD. Vital signs stable.
[2019-10-03 14:00] LABS: BASOPHILS % (AUTO) 2.1 % (0.0-2.0); HEMOGLOBIN 16.5 G/DL (12.0-16.0); LYMPHOCYTES % (AUTO) 35.5 % (20.0-45.0); MEAN CORPUSCULAR VOLUME 89 FL (80-99); MONOCYTES % (AUTO) 14.4 % (1.0-10.0); NEUTROPHILS % (AUTO) 47.9 % (45.0-75.0); PLATELET COUNT 182 K/UL (150-450); RED BLOOD COUNT 5.48 M/UL (4.20-5.40); RED CELL DISTRIBUTION WIDTH 11.1 % (11.6-14.8); WHITE BLOOD COUNT 4.3 K/UL (4.8-10.8)
[2019-10-03 14:05] LABS: APPEARANCE,URINE CLEAR; BILIRUBIN, URINE NEGATIVE (NEGATIVE); COLOR,URINE PALE YELLOW; GLUCOSE, URINE (UA) NEGATIVE (NEGATIVE); KETONES,URINE NEGATIVE (NEGATIVE); LEUKOCYTE ESTERASE ,URINE 1+ (NEGATIVE); NITRITE,URINE NEGATIVE (NEGATIVE); PH,URINE 6 (4.5-8.0); PROTEIN,URINE 2+ (NEGATIVE); UROBILINOGEN,URINE NORMAL MG/DL (0.0-1.0)
--- NOTE | 2019-10-03 14:11 | Emergency Room Report ---
History of Present Illness General Chief Complaint: General Complaint Source: Patient Present Illness HPI Patient states that she has had all over body aches, fever, chills, joint pain, headache and muscle cramps for the past 2 days. She has had no appetite. She denies chest pain or shortness of breath. She denies cough or congestion. She denies sore throat. She denies abdominal pain. She denies dysuria or hematuria. She did get her seasonal influenza vaccination. She has no other complaints. Allergies: Coded Allergies: No Known Allergies (Unverified , 07/17/13) Patient History Past Medical History: HTN, other - Liver enlargement. Social History: Denies: smoking, alcohol use, drug use Reviewed Nursing Documentation: PMH: Agreed; PSxH: Agreed Nursing Documentation-PMH Past Medical History: No History, Except For Hx Hypertension: Yes Review of Systems All Other Systems: negative except mentioned in HPI Physical Exam Vital Signs Date Time Temp Pulse Resp B/P (MAP) Pulse Ox O2 Delivery O2 Flow Rate FiO2 10/03/19 13:17 99.9 114 18 140/87 (104) 98 Room Air Sp02 EP Interpretation: reviewed, normal General Appearance: no apparent distress, alert, GCS 15, non-toxic Head: normocephalic, atraumatic Eyes: bilateral eye normal inspection, bilateral eye PERRL ENT: hearing grossly normal, normal pharynx, no angioedema, normal voice Neck: full range of motion, supple/symm/no masses Respiratory: chest non-tender, lungs clear, normal breath sounds, no respiratory distress, no retraction, no accessory muscle use, speaking full sentences Cardiovascular #1: no edema, tachycardia Gastrointestinal: normal bowel sounds, non tender, soft, non-distended, no guarding, no rebound Rectal: deferred Musculoskeletal: back normal, normal range of motion, gait/station normal, non- tender Neurologic: alert, motor strength/tone normal, oriented x3, sensory intact, responsive, speech normal Psychiatric: judgement/insight normal, memory normal, mood/affect normal, no suicidal/homicidal ideation Skin: no rash, normal color Medical Decision Making Diagnostic Impression: Primary Impression: Viral syndrome Additional Impression: Hypokalemia ER Course This patient has a clinical presentation consistent with viral syndrome. Symptoms are nonspecific. There are no red flags on physical exam that would make me concerned for serious illness. This includes no evidence of meningitis , intra-abdominal process that would make me concerned for appendicitis or diverticulitis or other surgical or emergency etiology. Overall, this patient' s presentation is benign and the patient is nontoxic. Laboratory workup is negative. There is no evidence of an emergency medical condition. The patient is given close return precautions and followup instructions. Laboratory Tests Test 10/03/19 13:45 White Blood Count 4.3 K/UL (4.8-10.8) L Red Blood Count 5.48 M/UL (4.20-5.40) H Hemoglobin 16.5 G/DL (12.0-16.0) H Hematocrit 49.0 % (37.0-47.0) H Mean Corpuscular Volume 89 FL (80-99) Mean Corpuscular Hemoglobin 30.1 PG (27.0-31.0) Mean Corpuscular Hemoglobin Concent 33.7 G/DL (32.0-36.0) Red Cell Distribution Width 11.1 % (11.6-14.8) L Platelet Count 182 K/UL (150-450) Mean Platelet Volume 7.6 FL (6.5-10.1) Neutrophils (%) (Auto) 47.9 % (45.0-75.0) Lymphocytes (%) (Auto) 35.5 % (20.0-45.0) Monocytes (%) (Auto) 14.4 % (1.0-10.0) H Eosinophils (%) (Auto) 0.0 % (0.0-3.0) Basophils (%) (Auto) 2.1 % (0.0-2.0) H Urine Color Pale yellow Urine Appearance Clear Urine pH 6 (4.5-8.0) Urine Specific [place] 1.010 (1.005-1.035) Urine Protein 2+ (NEGATIVE) H Urine Glucose (UA) Negative (NEGATIVE) Urine Ketones Negative (NEGATIVE) Urine Blood 2+ (NEGATIVE) H Urine Nitrite Negative (NEGATIVE) Urine Bilirubin Negative (NEGATIVE) Urine Urobilinogen Normal MG/DL (0.0-1.0) Urine Leukocyte Esterase 1+ (NEGATIVE) H Urine RBC 0-2 /HPF (0 - 2) Urine WBC 0-2 /HPF (0 - 2) Urine Squamous Epithelial Cells Few /LPF (NONE/OCC) Urine Bacteria Few /HPF (NONE) Sodium Level 132 MMOL/L (136-145) L Potassium Level 3.3 MMOL/L (3.5-5.1) L Chloride Level 95 MMOL/L (98-107) L Carbon Dioxide Level 24 MMOL/L (21-32) Anion Gap 13 mmol/L (5-15) Blood Urea Nitrogen 17 mg/dL (7-18) Creatinine 0.8 MG/DL (0.55-1.30) Estimate Glomerular Filtration Rate > 60 mL/min (>60) Glucose Level 116 MG/DL (74-106) H Calcium Level 9.0 MG/DL (8.5-10.1) Total Bilirubin 0.4 MG/DL (0.2-1.0) Aspartate Amino Transferase (AST) 117 U/L (15-37) H Alanine Aminotransferase (ALT) 202 U/L (12-78) H Alkaline Phosphatase 65 U/L (46-116) Total Protein 8.9 G/DL (6.4-8.2) H Albumin 3.7 G/DL (3.4-5.0) Globulin 5.2 g/dL Albumin/Globulin Ratio 0.7 (1.0-2.7) L Microbiology Date/Time Source Procedure Growth Status 10/03/19 13:45 Nasal Nares - Final Complete 10/03/19 13:45 Nasal Nares - Final Complete Last Vital Signs Date Time Temp Pulse Resp B/P (MAP) Pulse Ox O2 Delivery O2 Flow Rate FiO2 10/03/19 13:49 109 18 Room Air 10/03/19 13:49 99.9 157/98 98 Status: improved Disposition: HOME, SELF-CARE Condition: Improved Barbara Cho DO Oct 03, 2019 14:11
[2019-10-03] MEDS ORDERED: Acetaminophen 500mg (ES) tab ORAL ONE (14:15)
[2019-10-03] MEDS ORDERED: Ketorolac 30mg Inj IV ONE (14:15)
[2019-10-03 14:25] LABS: ANION GAP 13 mmol/L (5-15); BLOOD UREA NITROGEN 17 mg/dL (7-18); CARBON DIOXIDE 24 MMOL/L (21-32); CHLORIDE 95 MMOL/L (98-107); CREATININE 0.8 MG/DL (0.55-1.30); POTASSIUM 3.3 MMOL/L (3.5-5.1); SODIUM 132 MMOL/L (136-145)
[2019-10-03 14:29] LABS: ALANINE AMINOTRANSFERASE 202 U/L (12-78); ALBUMIN 3.7 G/DL (3.4-5.0); ALBUMIN/GLOBULIN RATIO 0.7 (1.0-2.7); ALKALINE PHOSPHATASE 65 U/L (46-116); ASPARTATE AMINO TRANSFERASE 117 U/L (15-37); BILIRUBIN,TOTAL 0.4 MG/DL (0.2-1.0)
[2019-10-03] MEDS ORDERED: IBUPROFEN600 MG ORAL (14:36)
[2019-10-03 14:59] LABS: CREATINE KINASE 135 U/L (26-308)
[2019-10-03 15:00] VITALS: BP 135/41
[2019-10-03 15:30] VITALS: BP 138/41
--- NOTE | 2019-10-03 15:30 | NUR ---
ER DISCHARGE NOTE: Patient is cleared to be discharged home per ERMD, pt is aox4, on room air, with stable vital signs. Pt reported that pain went from being 8/10 to 2/10. Pt was given dc and prescription instructions, pt was able to verbalize understanding, pt id band and iv site removed without complications. pt is able to ambulate with steady gait. pt took all belongings.
== END 2019-10-03 15:30 | disposition home or self-care (01) ==
LOC: EMR 14:26
DX: B34.9 Viral infection, unspecified (principal); E87.6 Hypokalemia; I10 Essential (primary) hypertension
CPT/HCPCS: 36415; 80053; 81003; 82550; 85025; 86710; 96361; 96374; J1885; Z7502; 99284; J8499